=== PATIENT | female | born 1930 | race Caucasian/White ===

== ENCOUNTER 2016-06-20 11:57 | Outpatient (CLI) ==
[2015-03-20 11:33] VITALS: BMI 24.7
== END 2016-06-20 11:58 | disposition home or self-care (01) ==
LOC: NONPT 11:57
PROVIDERS: ATTEND Family Medicine
DX: E11.9 Type 2 diabetes mellitus without complications (principal)
CPT/HCPCS: 83036

== ENCOUNTER 2017-01-14 13:32 | Outpatient (CLI) | payer OTHER ==
[2015-03-20 11:33] VITALS: BMI 24.7
[2017-01-14 13:38] LABS: ANISOCYTOSIS NOT PRESENT (NOT PRESENT)
[2017-01-14 13:50] LABS: HEMATOCRIT 55.5 % (37.0-47.0); HEMOGLOBIN 17.6 g/dl (12.0-16.0); MEAN CORPUSCULAR HEMOGLOBIN 27.5 pg (27.0-31.0); MEAN CORPUSCULAR HGB CONC 31.7 (31.8-35.4); MEAN CORPUSCULAR VOLUME 86.6 fl (81.0-99.0); PLATELET COUNT 537 10^3/uL (140-440); RED BLOOD COUNT 6.41 10^6/ul (4.20-5.40); WHITE BLOOD COUNT 11.49 K/ul (4.6-10.2)
== END 2017-01-14 13:33 | disposition home or self-care (01) ==
LOC: LAB 13:32
PROVIDERS: ATTEND Internal Medicine
DX: D45 Polycythemia vera (principal)
CPT/HCPCS: 36415; 85007; 85027

== ENCOUNTER 2017-01-15 08:58 | Outpatient (CLI) | payer OTHER ==
[2015-03-20 11:33] VITALS: BMI 24.7
[2017-01-15] MEDS ORDERED: VENOFER 200 MG in SODIUM CHLORIDE 100 ML IV ONE (09:43)
[2017-01-15 13:50] VITALS: BP 166/64; TEMP 9704
== END 2017-01-15 08:59 | disposition home or self-care (01) ==
LOC: OPMED 08:58
PROVIDERS: ATTEND Internal Medicine
DX: D50.9 Iron deficiency anemia, unspecified (principal); K90.9 Intestinal malabsorption, unspecified; D45 Polycythemia vera; D72.829 Elevated white blood cell count, unspecified; R71.8 Other abnormality of red blood cells; D75.1 Secondary polycythemia
CPT/HCPCS: 96365

== ENCOUNTER 2017-01-17 08:53 | Outpatient (CLI) ==
[2015-03-20 11:33] VITALS: BMI 24.7
[2017-01-17 09:08] VITALS: BP 182/73; TEMP 97.7
[2017-01-17] MEDS ORDERED: VENOFER 200 MG in SODIUM CHLORIDE 100 ML IV ONE (09:09)
== END 2017-01-17 08:54 | disposition home or self-care (01) ==
LOC: OPMED 08:53
PROVIDERS: ATTEND Internal Medicine
DX: D50.9 Iron deficiency anemia, unspecified (principal); K90.9 Intestinal malabsorption, unspecified
CPT/HCPCS: 96365; 96366

== ENCOUNTER 2017-01-22 09:03 | Outpatient (CLI) | payer OTHER ==
[2015-03-20 11:33] VITALS: BMI 24.7
[2017-01-22] MEDS ORDERED: VENOFER 200 MG in SODIUM CHLORIDE 100 ML IV ONE (09:25)
[2017-01-22 09:31] VITALS: BP 180/68; TEMP 97.5
== END 2017-01-22 09:04 | disposition home or self-care (01) ==
LOC: OPMED 09:03
PROVIDERS: ATTEND Internal Medicine
DX: D50.9 Iron deficiency anemia, unspecified (principal); K90.9 Intestinal malabsorption, unspecified
CPT/HCPCS: 96365

== ENCOUNTER 2017-01-24 09:03 | Outpatient (CLI) | payer OTHER ==
[2015-03-20 11:33] VITALS: BMI 24.7
[2017-01-24 09:43] VITALS: BP 206/77; TEMP 97.8
[2017-01-24] MEDS: VENOFER 200 MG in SODIUM CHLORIDE 100 ML IV ONE (12:06)
== END 2017-01-24 09:04 | disposition home or self-care (01) ==
LOC: OPMED 09:03
PROVIDERS: ATTEND Internal Medicine
DX: D50.9 Iron deficiency anemia, unspecified (principal); K90.9 Intestinal malabsorption, unspecified
CPT/HCPCS: 96365

== ENCOUNTER 2017-01-29 09:02 | Outpatient (CLI) | payer OTHER ==
[2015-03-20 11:33] VITALS: BMI 24.7
[2017-01-29 09:20] VITALS: BP 164/71; TEMP 98.3
[2017-01-29] MEDS: VENOFER 200 MG in SODIUM CHLORIDE 100 ML IV ONE (09:59)
== END 2017-01-29 09:03 | disposition home or self-care (01) ==
LOC: OPMED 09:02
PROVIDERS: ATTEND Internal Medicine
DX: D50.9 Iron deficiency anemia, unspecified (principal); K90.9 Intestinal malabsorption, unspecified
CPT/HCPCS: 96365

== ENCOUNTER 2017-01-31 09:11 | Outpatient (CLI) ==
[2015-03-20 11:33] VITALS: BMI 24.7
[2017-01-31 09:50] LABS: BASOPHILS # (AUTO) 0.2 K/uL (0-0.2); BASOPHILS % (AUTO) 2.8 % (0.0-3.0); EOSINOPHILS # (AUTO) 0.2 K/ul (0.0-0.7); EOSINOPHILS % (AUTO) 3.2 % (0.0-7.0); HEMATOCRIT 53.8 % (37.0-47.0); HEMOGLOBIN 17.2 g/dl (12.0-16.0); IMMATURE GRANULOCYTE % (AUTO) 1.2 % (0.0-5.0); LYMPHOCYTES # (AUTO) 1.6 K/uL (0.60-3.4); LYMPHOCYTES % (AUTO) 24.1 (10.0-50.0); MEAN CORPUSCULAR HEMOGLOBIN 28.5 pg (27.0-31.0); MEAN CORPUSCULAR VOLUME 89.1 fl (81.0-99.0); MONOCYTES # (AUTO) 0.3 K/uL (0.4-2.0); MONOCYTES % (AUTO) 4.5 (0-10); NEUTROPHILS # (AUTO) 4.2 K/ul (2.0-6.9); NEUTROPHILS % (AUTO) 64.2; PLATELET COUNT 217 10^3/uL (140-440); RED BLOOD COUNT 6.04 10^6/ul (4.20-5.40); WHITE BLOOD COUNT 6.47 K/ul (4.6-10.2)
[2017-01-31] MEDS ORDERED: VENOFER 200 MG in SODIUM CHLORIDE 100 ML IV ONE (10:30)
[2017-01-31 10:33] VITALS: BP 187/77; TEMP 97.2
== END 2017-01-31 12:50 | disposition home or self-care (01) ==
LOC: OPMED 09:11
PROVIDERS: ATTEND Internal Medicine
DX: D50.9 Iron deficiency anemia, unspecified (principal); K90.9 Intestinal malabsorption, unspecified
CPT/HCPCS: 36415; 85025; 96365

== ENCOUNTER 2017-02-05 09:00 | Outpatient (CLI) ==
[2015-03-20 11:33] VITALS: BMI 24.7
[2017-02-05] MEDS ORDERED: VENOFER 200 MG in SODIUM CHLORIDE 100 ML IV ONE (09:17)
[2017-02-05 09:39] VITALS: BP 114/64; TEMP 97.1
== END 2017-02-05 09:01 | disposition home or self-care (01) ==
LOC: OPMED 09:00
PROVIDERS: ATTEND Internal Medicine
DX: D50.9 Iron deficiency anemia, unspecified (principal); K90.9 Intestinal malabsorption, unspecified
CPT/HCPCS: 96365; 96366

== ENCOUNTER 2017-02-07 08:59 | Outpatient (CLI) ==
[2015-03-20 11:33] VITALS: BMI 24.7
--- NOTE | 2017-02-07 09:21 | ED.PDOC ---
Procedures - IV/Art Line Insertion Location: Wrist l Type of Line: Peripheral IV Invasive Line/IV Catheter Gauge: 22 Number of Attempts: 1 Blood Return Positive: Yes Invasive Line/IV Flushes Without Difficulty: Yes Conscious Sedation - Pre-op Assessment Surgical History: TONSILLS,FEMALE REPAIR, - Medical History Past Medical History: Hypertension, Diabetes, High Lipids, GERD, Arthritis
[2017-02-07] MEDS ORDERED: VENOFER 200 MG in SODIUM CHLORIDE 100 ML IV ONE (09:29)
[2017-02-07 09:31] VITALS: BP 185/80; TEMP 98
== END 2017-02-07 09:00 | disposition home or self-care (01) ==
LOC: OPMED 08:59
PROVIDERS: ATTEND Internal Medicine
DX: D50.9 Iron deficiency anemia, unspecified (principal); K90.9 Intestinal malabsorption, unspecified
CPT/HCPCS: 96365

== ENCOUNTER 2017-03-14 13:37 | Outpatient (CLI) ==
[2015-03-20 11:33] VITALS: BMI 24.7
[2017-03-14 13:56] LABS: BASOPHILS # (AUTO) 0.1 K/uL (0-0.2); BASOPHILS % (AUTO) 1.1 % (0.0-3.0); EOSINOPHILS # (AUTO) 0.1 K/ul (0.0-0.7); EOSINOPHILS % (AUTO) 1.3 % (0.0-7.0); HEMATOCRIT 36.4 % (37.0-47.0); HEMOGLOBIN 11.7 g/dl (12.0-16.0); IMMATURE GRANULOCYTE % (AUTO) 0.6 % (0.0-5.0); LYMPHOCYTES # (AUTO) 2.4 K/uL (0.60-3.4); LYMPHOCYTES % (AUTO) 30.1 (10.0-50.0); MEAN CORPUSCULAR HEMOGLOBIN 30.5 pg (27.0-31.0); MEAN CORPUSCULAR HGB CONC 32.1 (31.8-35.4); MONOCYTES # (AUTO) 0.4 K/uL (0.4-2.0); MONOCYTES % (AUTO) 4.8 (0-10); NEUTROPHILS # (AUTO) 4.9 K/ul (2.0-6.9); NEUTROPHILS % (AUTO) 62.1; PLATELET COUNT 274 10^3/uL (140-440); RED BLOOD COUNT 3.83 10^6/ul (4.20-5.40); WHITE BLOOD COUNT 7.88 K/ul (4.6-10.2)
[2017-03-14 14:07] LABS: ANISOCYTOSIS 2+ (NOT PRESENT)
== END 2017-03-14 13:38 | disposition home or self-care (01) ==
LOC: LAB 13:37
PROVIDERS: ATTEND Internal Medicine
DX: D45 Polycythemia vera (principal)
CPT/HCPCS: 36415; 85008; 85025

== ENCOUNTER 2017-04-28 13:30 | Outpatient (CLI) ==
[2015-03-20 11:33] VITALS: BMI 24.7
== END 2017-04-28 13:56 | disposition home or self-care (01) ==
LOC: AMBL 13:30
PROVIDERS: ATTEND Emergency Medicine
DX: R53.1 Weakness (principal); R82.90 Unspecified abnormal findings in urine

== ENCOUNTER 2017-05-14 10:47 | Outpatient (CLI) ==
[2015-03-20 11:33] VITALS: BMI 24.7
[2017-05-14] MEDS ORDERED: VENOFER 200 MG in SODIUM CHLORIDE 100 ML IV ONE (11:05)
[2017-05-14] MEDS ORDERED: BENADRYL IVP PRN (11:06)
[2017-05-14] MEDS ORDERED: PEPCID IVP PRN (11:08)
[2017-05-14 11:22] VITALS: BP 152/76; TEMP 97.8
== END 2017-05-14 10:48 | disposition home or self-care (01) ==
LOC: OPMED 10:47
PROVIDERS: ATTEND Internal Medicine
DX: D50.9 Iron deficiency anemia, unspecified (principal); K90.9 Intestinal malabsorption, unspecified; D45 Polycythemia vera
CPT/HCPCS: 96365

== ENCOUNTER 2017-05-16 10:46 | Outpatient (CLI) ==
[2015-03-20 11:33] VITALS: BMI 24.7
[2017-05-16 11:18] VITALS: BP 149/62; TEMP 96.7
[2017-05-16] MEDS ORDERED: VENOFER 200 MG in SODIUM CHLORIDE 100 ML IV ONE (11:19)
== END 2017-05-16 10:47 | disposition home or self-care (01) ==
LOC: OPMED 10:46
PROVIDERS: ATTEND Internal Medicine
DX: D50.9 Iron deficiency anemia, unspecified (principal); K90.9 Intestinal malabsorption, unspecified; D45 Polycythemia vera
CPT/HCPCS: 96360

== ENCOUNTER 2017-05-21 10:49 | Outpatient (CLI) ==
[2015-03-20 11:33] VITALS: BMI 24.7
[2017-05-21 11:01] VITALS: TEMP 97.8
[2017-05-21 11:03] VITALS: BP 154/64
[2017-05-21] MEDS ORDERED: VENOFER 200 MG in SODIUM CHLORIDE 100 ML IV ONE (11:04)
== END 2017-05-21 10:50 | disposition home or self-care (01) ==
LOC: OPMED 10:49
PROVIDERS: ATTEND Internal Medicine
DX: K90.9 Intestinal malabsorption, unspecified (principal); D50.9 Iron deficiency anemia, unspecified; D45 Polycythemia vera
CPT/HCPCS: 96360

== ENCOUNTER 2017-05-23 10:57 | Outpatient (CLI) ==
[2015-03-20 11:33] VITALS: BMI 24.7
[2017-05-23 11:17] VITALS: BP 165/64; TEMP 97.6
[2017-05-23] MEDS ORDERED: VENOFER 200 MG in SODIUM CHLORIDE 100 ML IV ONE (11:30)
== END 2017-05-23 10:58 | disposition home or self-care (01) ==
LOC: OPMED 10:57
PROVIDERS: ATTEND Internal Medicine
DX: K90.9 Intestinal malabsorption, unspecified (principal); D50.9 Iron deficiency anemia, unspecified; D45 Polycythemia vera

== ENCOUNTER 2017-05-28 10:59 | Outpatient (CLI) ==
[2015-03-20 11:33] VITALS: BMI 24.7
[2017-05-28] MEDS ORDERED: VENOFER 200 MG in SODIUM CHLORIDE 100 ML IV ONE (11:16)
[2017-05-28 11:50] VITALS: BP 170/71; TEMP 98
== END 2017-05-28 11:00 | disposition home or self-care (01) ==
LOC: OPMED 10:59
PROVIDERS: ATTEND Internal Medicine
DX: K90.9 Intestinal malabsorption, unspecified (principal); D50.9 Iron deficiency anemia, unspecified; D45 Polycythemia vera

== ENCOUNTER 2017-05-30 10:31 | Outpatient (CLI) | payer OTHER ==
[2015-03-20 11:33] VITALS: BMI 24.7
[2017-05-30] MEDS ORDERED: VENOFER 200 MG in SODIUM CHLORIDE 100 ML IV ONE (10:46)
--- NOTE | 2017-05-30 10:52 | ED.PDOC ---
Procedures - IV/Art Line Insertion Location: Lt foot Type of Line: Peripheral IV Invasive Line/IV Catheter Gauge: 22 Number of Attempts: 1 Blood Return Positive: Yes Invasive Line/IV Flushes Without Difficulty: Yes Conscious Sedation - Pre-op Assessment Surgical History: TONSILLS,FEMALE REPAIR, - Medical History Past Medical History: Hypertension, Diabetes, High Lipids, GERD, Arthritis
[2017-05-30 10:56] VITALS: BP 149/60; TEMP 97.8
== END 2017-05-30 12:35 | disposition home or self-care (01) ==
LOC: OPMED 10:31
PROVIDERS: ATTEND Internal Medicine
DX: K90.9 Intestinal malabsorption, unspecified (principal); D50.9 Iron deficiency anemia, unspecified; D45 Polycythemia vera
CPT/HCPCS: 96365

== ENCOUNTER 2017-06-04 10:46 | Outpatient (CLI) | payer OTHER ==
[2015-03-20 11:33] VITALS: BMI 24.7
[2017-06-04 11:00] VITALS: BP 170/69; TEMP 97.9
[2017-06-04] MEDS: VENOFER 200 MG in SODIUM CHLORIDE 100 ML IV ONE (11:44)
== END 2017-06-04 12:59 | disposition home or self-care (01) ==
LOC: OPMED 10:46
PROVIDERS: ATTEND Internal Medicine
DX: K90.9 Intestinal malabsorption, unspecified (principal); D50.9 Iron deficiency anemia, unspecified; D45 Polycythemia vera
CPT/HCPCS: 96365

== ENCOUNTER 2017-06-06 10:37 | Outpatient (CLI) ==
[2015-03-20 11:33] VITALS: BMI 24.7
[2017-06-06 11:00] VITALS: BP 162/68
[2017-06-06] MEDS ORDERED: VENOFER 200 MG in SODIUM CHLORIDE 100 ML IV ONE ×2 (11:00→11:01)
== END 2017-06-06 10:38 | disposition home or self-care (01) ==
LOC: OPMED 10:37
PROVIDERS: ATTEND Internal Medicine
DX: K90.9 Intestinal malabsorption, unspecified (principal); D50.9 Iron deficiency anemia, unspecified; D45 Polycythemia vera
CPT/HCPCS: 96365

== ENCOUNTER 2017-06-11 10:36 | Outpatient (CLI) | payer OTHER ==
[2015-03-20 11:33] VITALS: BMI 24.7
[2017-06-11 10:59] VITALS: BP 175/67; TEMP 98.6
[2017-06-11] MEDS ORDERED: VENOFER 200 MG in SODIUM CHLORIDE 100 ML IV ONE (10:59)
== END 2017-06-11 10:37 | disposition home or self-care (01) ==
LOC: OPMED 10:36
PROVIDERS: ATTEND Internal Medicine
DX: D50.9 Iron deficiency anemia, unspecified (principal); K90.9 Intestinal malabsorption, unspecified; D45 Polycythemia vera
CPT/HCPCS: 96365

== ENCOUNTER 2017-06-13 10:34 | Outpatient (CLI) | payer OTHER ==
[2015-03-20 11:33] VITALS: BMI 24.7
[2017-06-13 10:51] VITALS: BP 167/54; TEMP 98
[2017-06-13] MEDS ORDERED: VENOFER 200 MG in SODIUM CHLORIDE 100 ML IV ONE (11:04)
== END 2017-06-13 10:35 | disposition home or self-care (01) ==
LOC: OPMED 10:34
PROVIDERS: ATTEND Internal Medicine
DX: D50.9 Iron deficiency anemia, unspecified (principal); K90.9 Intestinal malabsorption, unspecified; D45 Polycythemia vera
CPT/HCPCS: 96365

== ENCOUNTER 2017-11-21 09:42 | Outpatient (CLI) ==
[2015-03-20 11:33] VITALS: BMI 24.7
== END 2017-11-21 09:43 ==
LOC: LAB 09:42
PROVIDERS: ATTEND Internal Medicine
DX: D45 Polycythemia vera (principal)
CPT/HCPCS: 36415; 85025

== ENCOUNTER 2017-12-18 08:35 | Outpatient (CLI) | payer OTHER ==
[2015-03-20 11:33] VITALS: BMI 24.7
== END 2017-12-18 08:36 | disposition home or self-care (01) ==
LOC: LAB 08:35
PROVIDERS: ATTEND Internal Medicine
DX: D45 Polycythemia vera (principal)
CPT/HCPCS: 36415; 85007; 85025

== ENCOUNTER 2017-12-25 09:44 | Outpatient (CLI) ==
[2015-03-20 11:33] VITALS: BMI 24.7
== END 2017-12-25 09:45 | disposition home or self-care (01) ==
LOC: LAB 09:44
PROVIDERS: ATTEND Internal Medicine
DX: D45 Polycythemia vera (principal)
CPT/HCPCS: 36415; 85008; 85025

== ENCOUNTER 2018-01-01 10:24 | Outpatient (CLI) ==
[2015-03-20 11:33] VITALS: BMI 24.7
== END 2018-01-01 10:25 | disposition home or self-care (01) ==
LOC: LAB 10:24
PROVIDERS: ATTEND Internal Medicine
DX: D45 Polycythemia vera (principal)
CPT/HCPCS: 36415; 85007; 85008; 85025

== ENCOUNTER 2018-01-10 10:09 | Outpatient (CLI) | payer OTHER ==
[2015-03-20 11:33] VITALS: BMI 24.7
== END 2018-01-10 10:10 | disposition home or self-care (01) ==
LOC: LAB 10:09
PROVIDERS: ATTEND Internal Medicine
DX: D45 Polycythemia vera (principal)
CPT/HCPCS: 36415; 85008; 85025

== ENCOUNTER 2018-04-21 10:39 | Outpatient (CLI) ==
[2015-03-20 11:33] VITALS: BMI 24.7
== END 2018-04-21 10:40 | disposition home or self-care (01) ==
LOC: LAB 10:39
PROVIDERS: ATTEND Internal Medicine
DX: D45 Polycythemia vera (principal)
CPT/HCPCS: 36415; 85008; 85025

== ENCOUNTER 2018-04-29 09:46 | Outpatient (CLI) ==
[2015-03-20 11:33] VITALS: BMI 24.7
== END 2018-04-29 09:47 | disposition home or self-care (01) ==
LOC: LAB 09:46
PROVIDERS: ATTEND Internal Medicine
DX: E61.1 Iron deficiency (principal)
CPT/HCPCS: 36415; 82728; 83540; 83550

== ENCOUNTER 2018-05-12 12:30 | Outpatient (CLI) ==
[2015-03-20 11:33] VITALS: BMI 24.7
== END 2018-05-12 12:31 | disposition home or self-care (01) ==
LOC: LAB 12:30
PROVIDERS: ATTEND Internal Medicine
DX: E61.1 Iron deficiency (principal)
CPT/HCPCS: 36415; 80053; 85008; 85025

== ENCOUNTER 2018-08-11 10:10 | Outpatient (CLI) ==
[2015-03-20 11:33] VITALS: BMI 24.7
== END 2018-08-11 10:11 | disposition home or self-care (01) ==
LOC: LAB 10:10
PROVIDERS: ATTEND Internal Medicine
DX: D72.829 Elevated white blood cell count, unspecified (principal)
CPT/HCPCS: 36415; 80053; 85008; 85025

== ENCOUNTER 2018-08-21 10:19 | Outpatient (CLI) ==
[2015-03-20 11:33] VITALS: BMI 24.7
== END 2018-08-21 10:20 | disposition home or self-care (01) ==
LOC: LAB 10:19
PROVIDERS: ATTEND Internal Medicine
DX: D72.820 Lymphocytosis (symptomatic) (principal)
CPT/HCPCS: 36415; 85008; 85025

== ENCOUNTER 2018-08-26 09:07 | Emergency (ER) ==
[2018-08-26 09:11] VITALS: BP 146/66; TEMP 98.5
[2018-08-26 09:25] VITALS: BMI 21.5
--- NOTE | 2018-08-26 09:33 | ED.PDOC ---
General ED Provider: Dr. MACKENZIE BRANDON Chief Complaint: Tooth Problem Stated Complaint: Facial and jaw pain. Onset 48 hrs. At Rt lat mandibular and submandibular swelling /glandular swelling. States noticed discomfort started 2 -3 days ago with referred pain to mandibular, nasal and up to forehead and rt frontal scalp. Describes as combination dull aching and sharp stabbing. Also recenlty broke off rt upper molar tooth but not particularly painful Time Seen by Physician: 09:35 Mode of Arrival: Wheelchair Information Source: Patient, Family Exam Limitations: No limitations Primary Care Provider: HANS WESTFALL Nursing and Triage Documentation Reviewed and Agree: Yes Does patient meet sepsis criteria?: No System Inflammatory Response Syndrome: Not Applicable Sepsis Protocol: For patient's 13 years and over: Temp is 96.8 and below OR 101 and greater Pulse >90 BPM Resp >20/minute Acutely Altered Mental Status Are patient's symptoms suggestive of a new infection, such as: -Pneumonia -Skin, Soft Tissue -Endocarditis -UTI -Bone, Joint Infection -Implantable Device -Acute Abdominal Infection -Wound Infection -Meningitis -Blood Stream Catheter Infection -Unknown EENT Complaint Exam - Dental/Oral Complaint/Exam Mechanism of Injury: Unknown Onset/Duration: 3 days Symptoms Are: Still present Timing: Constant Initial Severity: Mild Current Severity: Mild Location: rt upper maxillary Character: Reports: Sharp, Dull, Aching Aggravating: Reports: Chewing Alleviating: Reports: None Associated Signs and Symptoms: Reports: Swelling. Denies: Discharge, Fever, Foul odor, Foul taste in mouth Related History: Denies: Similar episode Cardiac Risk Factors: Reports: None Dental/Oral Surgical History: Reports: None Tooth Findings: Present: Dental fracture Cervical Lymphadenopathy Present: Yes Facial Swelling Present: Yes Bleeding Present: No Dysphagia Present: No Drooling Present: No Trismus Present: No Teeth Picture: 1 - fracture to base Differential Diagnoses: Odontogenic Pain, Other (Facial pain /mandibular pain , shingles) Review of Systems - Review Of Systems Constitutional: Reports: No symptoms Eyes: Reports: No symptoms Ears, Nose, Mouth, Throat: Reports: No symptoms Respiratory: Reports: No symptoms Cardiac: Reports: No symptoms GI: Reports: No symptoms : Reports: No symptoms Musculoskeletal: Reports: No symptoms Skin: Reports: No symptoms Neurological: Reports: No symptoms Endocrine: Reports: No symptoms Hematologic/Lymphatic: Reports: No symptoms All Other Systems: Reviewed and Negative Past Medical History - Past Medical History Endocrine: Reports: DM 2, Dyslipidemia Cardiovascular: Reports: Hypertension Respiratory: Reports: None Hematological: Reports: None Gastrointestinal: Reports: GERD Genitourinary: Reports: None Neuro/Psych: Reports: None Musculoskeletal: Reports: None Cancer: Reports: None Last Menstrual Period: none - Surgical History General Surgical History: Reports: Unknown - Family History Family History: Reports: Unknown - Social History Smoking Status: Never smoker Hx Substance Use: No Alcohol Screening: None Physical Exam - Physical Exam Appearance: Well-appearing, No pain distress, Well-nourished Ill-appearing: None Pain Distress: Mild Eyes: [place], EOMI, Conjunctiva clear ENT: Ears normal, Nose normal, Oropharynx normal Neck: Supple Respiratory: Airway patent, Breath sounds clear, Breath sounds equal, Respirations nonlabored Cardiovascular: RRR, Pulses normal, No rub, No murmur GI/: Soft, Nontender, No masses, Bowel sounds normal, No Organomegaly Musculoskeletal: Normal strength, ROM intact, No edema, No calf tenderness Skin: Warm, Dry, Normal color Neurological: Sensation intact, Motor intact, Reflexes intact, Cranial nerves intact, Alert, Oriented Psychiatric: Affect appropriate, Mood appropriate Critical Care Note - Critical Care Note Total Time (mins): 60 Course - Course Hematology/Chemistry: 08/26/18 10:00 08/26/18 10:00 Vital Signs: Temp Pulse Resp BP Pulse Ox 08/26/18 09:08 98.5 F 59 L 20 146/66 H 98 Departure - Departure Time of Disposition: 11:50 Disposition: HOME SELF-CARE Discharge Problem: Dental caries, Dental abscess, Jaw pain, Paranasal sinus disease Discharge Problem: (Ruled Out): Mastoid abscess Instructions: Dental Abscess (ED), Atypical Facial Pain (ED) Condition: Fair Pt referred to PMD for follow-up: Yes IPMP verified?: No Additional Instructions: Take meds Tramadol for pain as needed See PCP in 1 wk See Dentist as planned Prescriptions: Amoxicillin 875 mg PO BID #20 tablet Allergies/Adverse Reactions: Allergies Sulfa (Sulfonamide Antibiotics) Allergy (Intermediate, Verified 08/26/18 09:11) Nausea hydrocodone Adverse Reaction (Verified 08/26/18 09:11) Rash Home Medications: Ambulatory Orders Amlodipine Besylate 5 mg PO DAILY 03/20/15 Pravastatin Sodium [Pravachol] 40 mg PO BEDTIME 03/20/15 Aspirin [Aspirin EC] 81 mg PO DAILYWM 01/24/17 Gabapentin [Neurontin] 300 mg PO BID 01/24/17 Hydralazine HCl 50 mg PO BID 01/24/17 Insulin Lispro [Humalog] 4 unit SUBCUT TIDWM 01/24/17 Lisinopril 20 mg PO DAILY 01/24/17 Acetaminophen [Tylenol] 650 mg PO Q6H PRN 08/26/18 Amoxicillin 875 mg PO BID #20 tablet 08/26/18 Bisacodyl [Dulcolax] 5 mg PO DAILY PRN 08/26/18 Ferrous Sulfate [Feosol] 325 mg PO DAILY 08/26/18 Hydroxyurea [Siklos] 1,000 mg PO EVERY OTHER DAY 08/26/18 Hydroxyurea [Siklos] 500 mg PO EVERY OTHER DAY 08/26/18 Metoprolol Tartrate [Lopressor] 50 mg PO BID 08/26/18 Omeprazole [Prilosec] 20 mg PO QDAC 08/26/18 Disposition Discussed With: Patient, Family
--- NOTE | 2018-08-26 11:21 | CT ---
EXAM: CT FACIAL BONES HISTORY: Right-sided facial and mandibular/maxillary pain. TECHNIQUE: CT facial bones without contrast. 3-mm axial sections. Coronal and sagital reformations . FINDINGS: Diagnostic limitations may exist without including contrast enhanced images. The patient is partiall y edentulous. The remaining teeth are severely affected by multiple dental caries and there are mult iple tooth root abscesses identified bilaterally involving both maxillary and mandibular teeth. No s oft tissue abscess or well-defined focus of cellulitis is identified. There is mild mucosal thickeni ng within the maxillary sinuses. Bilateral mastoid process effusions are present. Atherosclerotic d isease is noted. 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 IMPRESSION: 1. Poor dental health including multiple caries and tooth root abscesses. No soft tissue abscess is seen. 2. Mild chronic paranasal sinusitis. 3. Bilateral mastoid process effusions. 4. 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
== END 2018-08-26 12:11 | disposition home or self-care (01) ==
LOC: ED 09:07
DX: K08.89 Other specified disorders of teeth and supporting structures (principal); R68.84 Jaw pain; J32.9 Chronic sinusitis, unspecified
CPT/HCPCS: 36415; 80053; 85008; 85025; 85651; 93005; 93010; 99283

== ENCOUNTER 2018-09-10 11:56 | Outpatient (CLI) | END 2018-09-10 11:57 | disposition home or self-care (01) | LOC: LAB 11:56 | PROVIDERS: ATTEND Family Medicine | DX: N28.9 Disorder of kidney and ureter, unspecified (principal); K04.7 Periapical abscess without sinus | CPT/HCPCS: 36415; 80048; 85007; 85025 ==

== ENCOUNTER 2018-10-02 11:28 | Outpatient (CLI) | END 2018-10-02 11:29 | disposition home or self-care (01) | LOC: LAB 11:28 | PROVIDERS: ATTEND Family Medicine | DX: D50.9 Iron deficiency anemia, unspecified (principal); E61.1 Iron deficiency; D45 Polycythemia vera; I10 Essential (primary) hypertension | CPT/HCPCS: 36415; 80053; 85008; 85025 ==